=== PATIENT | male | born 1970 | race Caucasian/White ===

== ENCOUNTER → 2021-05-25 | Outpatient (CLI) | payer BC ==
[~2021-05-25] MED LIST: ASPIRIN EC81 MG PO; FISH OIL 1,0001 EACH PO; NORCO 5-325 TA1 EACH PO; TORADOL 10 MG T10 MG PO
[2021-05-25 08:38] LABS: HEMOGLOBIN 15.4 gm/dl (14.0-17.5); RED BLOOD COUNT 4.91 M/UL (4.20-5.50); WHITE BLOOD COUNT 6.4 K/UL (4.5-11.0)
[2021-05-25 09:02] LABS: BUN/CREATININE RATIO 20 (0-10)
== END ==
LOC: LAB 08:06
PROVIDERS: Nurse Practitioner Family
DX: Z00.00 Encounter for general adult medical examination without abnormal findings (principal); R68.89 Other general symptoms and signs; R00.2 Palpitations; R20.2 Paresthesia of skin; G56.03 Carpal tunnel syndrome, bilateral upper limbs; E78.5 Hyperlipidemia, unspecified; Z91.018 Allergy to other foods; R53.83 Other fatigue; E53.8 Deficiency of other specified B group vitamins; E55.9 Vitamin D deficiency, unspecified
CPT/HCPCS: 36415; 80053; 80061; 82607; 84439; 84443; 85025